=== PATIENT | male | born 1930 | race Caucasian/White ===

== ENCOUNTER 2016-07-02 10:15 | Emergency (ER) | payer MEDICARE, BC, OTHER ==
[~2016-07-02] VITALS: Ht 177.8 cm; Wt 83.9 kg
[2016-07-02] MEDS ORDERED: PANT40TA2 PO (10:27)
[2016-07-02] MEDS ORDERED: AMOX875T PO (10:27)
[2016-07-02] MEDS ORDERED: MAXZTA PO (10:27)
[2016-07-02] MEDS ORDERED: BENT10CA PO (10:27)
[2016-07-02] MEDS ORDERED: MECLIZINE 25 MG TABLET PO ONE (11:45)
[2016-07-02] MEDS ORDERED: PROMETHAZINE INJ 25 MG/ML VIAL (J2550) IV ONE (11:45)
[2016-07-02 11:58] LABS: BASO % 0.3 % (0.0-1.0); EOS # 0.2 K/mm3 (0.0-0.50); EOS % 2.7 % (0.0-3.0); LARGE UNSTAINED CELL # 0.1 K/mm3 (0.0-0.4); LARGE UNSTAINED CELL % 0.9 % (0.0-4.0); LYMPH % 13.3 % (24.0-44.0); MEAN CORPUSCULAR HEMOGLOBIN 31.4 pg (27.0-33.0); MEAN CORPUSCULAR HGB CONC 33.5 g/dl (32.0-36.5); MEAN CORPUSCULAR VOLUME 93.9 fl (80.0-96.0); MONO # 0.2 K/mm3 (0.0-0.8); MONO % 2.7 % (0.0-5.0); NEUTROPHILS # 5.6 K/mm3 (1.8-7.7); NEUTROPHILS % 80.1 % (36.0-66.0); PLATELET COUNT, AUTOMATED 101 k/mm3 (150-450)
--- NOTE | 2016-07-02 12:05 | REP ---
CT HEAD WITHOUT CONTRAST: HISTORY: Vertigo. Areas of decreased attenuation are present in the periventricular white matter. This represents small vessel ischemic disease. There is no intraparenchymal hemorrhage, mass or midline shift. The ventricular system and cortical sulci as well as subarachnoid space in the posterior fossa are dilated consistent with moderate volume loss. There is no extracerebral collection. The visualized sinuses are clear. IMPRESSION: 1. Small vessel ischemic disease. 2. Moderate volume loss. Signed by Leonel Becerra MD 07/02/2016 12:08 P
[2016-07-02 12:08] LABS: ANION GAP 3 MEQ/L (8-16); BLOOD UREA NITROGEN 27 MG/DL (7-18); CALCIUM LEVEL 9.1 MG/DL (8.8-10.2); CARBON DIOXIDE LEVEL 31 MEQ/L (21-32); CHLORIDE LEVEL 100 MEQ/L (98-107); CREATININE FOR GFR 0.99 MG/DL (0.70-1.30); GLOMERULAR FILTRATION RATE > 60.0 (>35); GLUCOSE, FASTING 133 MG/DL (83-110); POTASSIUM SERUM 3.6 MEQ/L (3.5-5.1); SODIUM LEVEL 134 MEQ/L (136-145)
[2016-07-02] MEDS ORDERED: MECL-68 PO (14:44)
[2016-07-02] MEDS ORDERED: ZOFR4TAB3 PO (14:44)
[2016-07-02 14:58] VITALS: BP 146/71
--- NOTE | 2016-07-03 04:56 | ECGEPIP ---
Stationary ECG Study [facility] - ED Test Date: 2016-07-02 Pat Name: ALEJANDRO WASHINGTON Department: Room: - Gender: M Director Of Claims: veronica : [id number] Requested By: Brad Pedro Order Number: [id number] Reading MD: Brad Hooker Measurements Intervals [place] Rate: 43 P: 36 NV: 172 QRS: -40 QRSD: 105 T: -3 QT: 477 QTc: 408 Interpretive Statements SINUS BRADYCARDIA LEFT AXIS DEVIATION PATTERN CONSISTENT WITH PULMONARY DISEASE NO PRIORS Electronically Signed On 07-03-2016 4:56:38 EDT by Brad Hooker
== END 2016-07-02 15:00 | disposition home or self-care (01) ==
LOC: M ED 13:34
DX: H83.09 Labyrinthitis, unspecified ear (principal); R00.1 Bradycardia, unspecified; K21.9 Gastro-esophageal reflux disease without esophagitis; Z79.899 Other long term (current) drug therapy; Z79.2 Long term (current) use of antibiotics

== ENCOUNTER → 2018-09-02 | Outpatient (REF) | payer MEDICARE, OTHER ==
[~2018-09-02] MED LIST: AMOX875T PO; BENT10CA PO; MAXZTA PO; MECL-68 PO; PANT40TA3 PO; TAMS1CAP17; ZOFR4TAB14 PO
[2018-09-03 14:47] LABS: PSA % FREE 23.4 % (.); PSA FREE 1.24 ng/mL; PSA TOTAL 5.3 ng/mL (0.0-4.0)
== END ==
LOC: M LAB REF 12:27
PROVIDERS: ATTEND Internal Medicine
DX: R97.20 Elevated prostate specific antigen [PSA] (principal); E29.1 Testicular hypofunction

== ENCOUNTER 2018-09-03 10:24 | Emergency (ER) | payer MEDICARE, BC, OTHER ==
[~2018-09-03] VITALS: Ht 175.3 cm; Wt 84.1 kg
[~2018-09-03 10:24] MED LIST changes: -TAMS1CAP17
[2018-09-03] MEDS ORDERED: TAMS1CAP17 (10:34)
[2018-09-03 11:06] LABS: BASO % 0.3 % (0.0-1.0); EOS # 0.2 10^3/uL (0.0-0.50); EOS % 2.4 % (0.0-3.0); HEMATOCRIT 44.7 % (42.0-52.0); LYMPH % 15.5 % (24.0-44.0); MEAN CORPUSCULAR HEMOGLOBIN 31.7 pg (27.0-33.0); MEAN CORPUSCULAR HGB CONC 33.6 g/dl (32.0-36.5); MEAN CORPUSCULAR VOLUME 94.5 fl (80.0-96.0); MONO # 0.3 10^3/uL (0.0-0.8); NEUTROPHILS # 4.8 10^3/uL (1.8-7.7); NEUTROPHILS % 76.6 % (36.0-66.0); PLATELET COUNT, AUTOMATED 127 10^3/uL (150-450); RED BLOOD COUNT 4.73 10^6/uL (4.30-6.10); WHITE BLOOD COUNT 6.2 10^3/uL (4.0-10.0)
[2018-09-03 11:28] LABS: ALBUMIN 3.9 GM/DL (3.2-5.2); ALT/SGPT 30 U/L (12-78); BILIRUBIN,DIRECT 0.2 MG/DL (0.0-0.2); BILIRUBIN,TOTAL 0.6 MG/DL (0.2-1.0); BLOOD UREA NITROGEN 27 MG/DL (7-18); CALCIUM LEVEL 9.2 MG/DL (8.8-10.2); CARBON DIOXIDE LEVEL 27 MEQ/L (21-32); CHLORIDE LEVEL 103 MEQ/L (98-107); CREATININE FOR GFR 1.14 MG/DL (0.70-1.30); GLOMERULAR FILTRATION RATE > 60.0 (>35); GLUCOSE, FASTING 105 MG/DL (70-100); LIPASE 125 U/L (73-393); POTASSIUM SERUM 3.5 MEQ/L (3.5-5.1); SODIUM LEVEL 138 MEQ/L (136-145); TOTAL PROTEIN 7.6 GM/DL (6.4-8.2)
--- NOTE | 2018-09-03 12:26 | REP ---
Bilateral inguinal ultrasound for hernia: The the patient has a palpable lump in the right inguinal area. Right inguinal ultrasound: The study is performed without and with Valsalva. Bowel , peritoneal fat and free fluid are identified in the right inguinal canal extending to the external ring but not to the scrotum. There is no change with Valsalva. Impression: Right inguinal hernia containing bowel. The left inguinal ultrasound: The the study is performed without and with Valsalva. There is no bowel within the left inguinal canal. However, peritoneal fat is identified within the inguinal canal. With Valsalva. The peritoneal fat extends to the external ring. Impression: Left inguinal hernia containing peritoneal fat but no bowel. Electronically Signed by Ck Cortez MD 09/03/2018 12:16 P
[2018-09-03] MEDS ORDERED: NS 1,000 ML IV ONE (13:00)
[2018-09-03] MEDS ORDERED: ISOVUE-370 76% 100ML VIAL (Q9967) As Ordered ONE (13:23)
[2018-09-03 16:38] VITALS: BP 154/79
--- NOTE | 2018-09-03 17:19 | REP ---
CT ABDOMEN AND PELVIS WITH IV CONTRAST: TECHNIQUE: Axial contrast enhanced images from the lung bases to the pubic symphysis using 100 mL Isovue 370 intravenous contrast material with multiplanar reformations. Visualized lung bases demonstrate mild fibrotic change. The liver demonstrates no mass. The gallbladder is grossly unremarkable. Spleen, adrenals, pancreas are grossly unremarkable. Kidneys demonstrate no hydronephrosis. There is atherosclerotic calcification of the abdominal aorta without aneurysm. There is no adenopathy. There is no free air or free fluid. No bowel wall thickening is seen. There is sigmoid diverticulosis. There is no evidence of appendicitis. Urinary bladder is mildly distended and grossly unremarkable. Small left inguinal hernia contains fat. There is a large right inguinal hernia containing nonobstructed small bowel loops. A tiny amount of fluid is seen in the hernia sac. I do not see significant edema in the hernia sac to suggest strangulation. There is some minor edema in the more superior right lower quadrant mesentery which is of doubtful significance. There are degenerative changes in the spine. IMPRESSION: Large right inguinal hernia contains nonobstructed small bowel. Minimal fluid in the hernia sac. No significant edema in the hernia sac and therefore I doubt that there is strangulation of the hernia. There is sigmoid diverticulosis without acute diverticulitis. No free air or free fluid. Electronically Signed by Ck Deleon MD 09/03/2018 06:44 P
== END 2018-09-03 16:43 | disposition home or self-care (01) ==
LOC: M ED 10:25
DX: K40.90 Unilateral inguinal hernia, without obstruction or gangrene, not specified as recurrent (principal); I10 Essential (primary) hypertension; Z79.899 Other long term (current) drug therapy
CPT/HCPCS: 74177; 76857; 80048; 80076; 83690; 85025; 96360; 96361; 99284; Q9967

== ENCOUNTER 2018-10-24 06:00 | Day surgery (SDC) | payer MEDICARE, BC, OTHER ==
[~2018-10-24] VITALS: Ht 174 cm; Wt 84.4 kg
[~2018-10-24 06:00] MED LIST changes: +ASPI81TA85 PO; +LIDOCAINE 1% MDV 20ML VIAL SQ PRN; +TAMS1CAP17 PO
[2018-10-24 06:44] LABS: HEMATOCRIT 40.7 % (42.0-52.0); HEMOGLOBIN 13.7 g/dl (13.5-17.5); MEAN CORPUSCULAR HGB CONC 33.7 g/dl (32.0-36.5); MEAN CORPUSCULAR VOLUME 92.1 fl (80.0-96.0); PLATELET COUNT, AUTOMATED 126 10^3/uL (150-450); RED BLOOD COUNT 4.42 10^6/uL (4.30-6.10); WHITE BLOOD COUNT 6.1 10^3/uL (4.0-10.0)
[2018-10-24] MEDS ORDERED: DESFLURANE 240 ML INHALANT As Ordered ONE (06:55)
[2018-10-24] MEDS ORDERED: LR 1,000 ML IV ONE (07:00)
[2018-10-24] MEDS ORDERED: ceFAZolin SOD 1 GM in D5W MINI-BAG PLUS 50 ML IV ONE (07:00)
[2018-10-24] MEDS ORDERED: LIDOCAINE 2% INJ 100 MG/5 ML SDV (FOR ANES.) As Ordered ONE (07:05)
[2018-10-24] MEDS ORDERED: ROCURONIUM BROMIDE 50 MG/5 ML VIAL As Ordered ONE ×2 (07:05→08:03)
[2018-10-24] MEDS ORDERED: ONDANSETRON 4MG/2ML VIAL (J2405) As Ordered ONE (07:05)
[2018-10-24] MEDS ORDERED: dexameTHASONE 4 MG/ML 1ML VIAL (J1100) As Ordered ONE (07:05)
[2018-10-24] MEDS ORDERED: PROPOFOL 200 MG/20 ML VIAL As Ordered ONE (07:05)
[2018-10-24] MEDS ORDERED: MIDAZOLAM INJ 2 MG/2 ML VIAL (J2250) As Ordered ONE (07:06)
[2018-10-24] MEDS ORDERED: fentaNYL 250 MCG/5 ML INJECTION (J3010) As Ordered ONE (07:06)
[2018-10-24] MEDS ORDERED: BUPIVACAINE/EPIN 0.25% 30 ML VIAL As Ordered ONE (07:08)
[2018-10-24] MEDS ORDERED: GLYCOPYRROLATE INJ 0.2 MG/ML 2 ML VIAL As Ordered ONE (07:40)
[2018-10-24] MEDS ORDERED: ePHEDrine SULFATE 25 MG/5 ML(5MG/ML) SYRINGE As Ordered ONE (08:25)
[2018-10-24] MEDS ORDERED: ACETAMINOPHEN 1000MG 100ML IV BTL (OFIRMEV) (J0131 PER 10MG) As Ordered ONE (08:25)
[2018-10-24] MEDS ORDERED: SUGAMMADEX SODIUM 500 MG/5 ML VIAL (BRIDION) As Ordered ONE (08:27)
[2018-10-24] MEDS ORDERED: NORCO, ANEXSIA 5/325MG TABLET (HYDROcodone/ACETAMINOPHEN) PO PRN (10:00)
[2018-10-24] MEDS ORDERED: ONDANSETRON 4MG/2ML VIAL (J2405) IV PRN ×2 (10:00)
[2018-10-24] MEDS ORDERED: fentaNYL 100 MCG/2 ML INJECTION (J3010) IV PRN (10:00)
[2018-10-24] MEDS ORDERED: LR 1,000 ML IV SCH ×2 (10:00)
[2018-10-24] MEDS ORDERED: PERCOCET 5MG/325MG TAB PO PRN (10:00)
[2018-10-24] MEDS ORDERED: HYDROMORPHONE HCL 0.5 MG/ 0.5 ML SYRINGE (J1170 PER 1) IV PRN (10:00)
[2018-10-24 12:15] VITALS: BP 126/80
== END 2018-10-24 12:31 | disposition home or self-care (01) ==
LOC: M SDC 06:00
PROVIDERS: ATTEND Surgery
DX: K40.20 Bilateral inguinal hernia, without obstruction or gangrene, not specified as recurrent (principal); I10 Essential (primary) hypertension; I87.2 Venous insufficiency (chronic) (peripheral); K57.92 Diverticulitis of intestine, part unspecified, without perforation or abscess without bleeding; N40.0 Benign prostatic hyperplasia without lower urinary tract symptoms; Z79.82 Long term (current) use of aspirin; Z79.899 Other long term (current) drug therapy
CPT/HCPCS: 36415; 49650; 85027; C1781; J0131; J0690; J1100; J2250; J2405; J3010

== ENCOUNTER → 2018-12-16 | Outpatient (REF) | payer MEDICARE, OTHER ==
[~2018-12-16] MED LIST changes: -LIDOCAINE 1% MDV 20ML VIAL SQ PRN
[2018-12-17 14:52] LABS: PSA % FREE 19.7 % (.); PSA FREE 1.2 ng/mL; PSA TOTAL 6.1 ng/mL (0.0-4.0)
== END ==
LOC: M LAB REF 12:32
PROVIDERS: ATTEND Internal Medicine
DX: R97.20 Elevated prostate specific antigen [PSA] (principal)

== ENCOUNTER → 2019-07-28 | Outpatient (REF) | payer MEDICARE, OTHER ==
[~2019-07-28] MED LIST changes: -MECL-68 PO; +MECL1TAB31 PO
== END ==
LOC: M LAB REF 13:36
PROVIDERS: ATTEND Nurse Practitioner Adult Health
DX: M10.9 Gout, unspecified (principal)

== ENCOUNTER → 2019-09-17 | Outpatient (REF) | payer MEDICARE, OTHER ==
[2019-09-19 02:07] LABS: PSA % FREE 18.5 % (.); PSA FREE 1.11 ng/mL
== END ==
LOC: M LAB REF 11:29
PROVIDERS: ATTEND Nurse Practitioner Adult Health
DX: R97.20 Elevated prostate specific antigen [PSA] (principal)

== ENCOUNTER → 2019-12-23 | Outpatient (REF) | payer MEDICARE, OTHER ==
[~2019-12-23] MED LIST changes: -ASPI81TA85 PO; +ASPI81TA86 PO; +PANT40TA29 PO; -PANT40TA3 PO
== END ==
LOC: M LAB REF 16:12
PROVIDERS: ATTEND Nurse Practitioner Adult Health
DX: M10.9 Gout, unspecified (principal)

== ENCOUNTER → 2020-07-21 | Outpatient (REF) | payer MEDICARE, OTHER | LOC: M LAB REF 16:21 | PROVIDERS: ATTEND Nurse Practitioner Adult Health | DX: M31.6 Other giant cell arteritis (principal) ==

== ENCOUNTER → 2020-08-18 | Outpatient (REF) | payer MEDICARE, OTHER | LOC: M LAB REF 12:24 | PROVIDERS: ATTEND Internal Medicine | DX: M31.6 Other giant cell arteritis (principal) ==

== ENCOUNTER → 2020-09-13 | Outpatient (REF) | payer MEDICARE, OTHER | LOC: M LAB REF 12:22 | PROVIDERS: ATTEND Internal Medicine | DX: M31.6 Other giant cell arteritis (principal); R70.0 Elevated erythrocyte sedimentation rate ==

== ENCOUNTER → 2020-10-13 | Outpatient (CLI) | payer MEDICARE, BC, OTHER ==
--- NOTE | 2020-10-13 12:14 | REP ---
INDICATION: MELISSA INGUINAL HERNIA. History of bilateral hernia repair, recent bulge on the left. Question recurrent hernia. COMPARISON: Comparison study is from September 03, 2018. TECHNIQUE: Bilateral inguinal sonography. FINDINGS: Bilateral inguinal canal sonography is performed. On the left there is evidence of recurrent inguinal hernia containing a bowel loop extending nearly to the external inguinal ring. The defect measures 0.7 cm in AP dimension. On the right scanning was performed at rest and with Valsalva. No evidence of right-sided hernia. No cyst or mass is seen on either side. IMPRESSION: Findings consistent with a recurrent hernia left inguinal canal containing bowel. This was not reducible with probe pressure.. <Electronically signed by Michael Escobedo > 10/13/20 [id number]
== END ==
LOC: M RAD 11:29
PROVIDERS: ATTEND Surgery
DX: K40.31 Unilateral inguinal hernia, with obstruction, without gangrene, recurrent (principal)

== ENCOUNTER → 2020-10-17 | Outpatient (REF) | payer MEDICARE, OTHER, BC ==
[~2020-10-17] MED LIST changes: -MAXZTA PO; +TRIA75TA2 PO
== END ==
LOC: M LAB REF 11:15
PROVIDERS: ATTEND Nurse Practitioner Adult Health
DX: M31.6 Other giant cell arteritis (principal)

== ENCOUNTER → 2020-11-17 | Outpatient (REF) | payer MEDICARE, OTHER, BC | LOC: M LAB REF 16:08 | PROVIDERS: ATTEND Nurse Practitioner Adult Health | DX: M31.6 Other giant cell arteritis (principal) ==

== ENCOUNTER → 2020-12-23 | Outpatient (REF) | payer MEDICARE, OTHER, BC | LOC: M LAB REF 12:39 | PROVIDERS: ATTEND Internal Medicine | DX: M31.6 Other giant cell arteritis (principal) ==

== ENCOUNTER → 2021-07-19 | Outpatient (REF) | payer MEDICARE, OTHER, BC | LOC: M LAB REF 12:33 | PROVIDERS: ATTEND Nurse Practitioner Adult Health | DX: M31.6 Other giant cell arteritis (principal) ==

== ENCOUNTER → 2021-08-17 | Outpatient (REF) | payer MEDICARE, OTHER, BC ==
[~2021-08-17] MED LIST changes: +TRIA75TA10 PO; -TRIA75TA2 PO
== END ==
LOC: M LAB REF 11:57
PROVIDERS: ATTEND Nurse Practitioner Adult Health
DX: I67.7 Cerebral arteritis, not elsewhere classified (principal); R70.0 Elevated erythrocyte sedimentation rate

== ENCOUNTER 2021-08-31 09:46 | Emergency (ER) | payer MEDICARE, OTHER, BC ==
[~2021-08-31] VITALS: Ht 177.8 cm; Wt 78.6 kg
[2021-08-31] MEDS ORDERED: FURO20TA2 (10:10)
[2021-08-31] MEDS ORDERED: DICY10CA13 (10:10)
[2021-08-31] MEDS ORDERED: ALLO300T2 (10:11)
[2021-08-31] MEDS ORDERED: VALS40TA9 (10:11)
[2021-08-31] MEDS ORDERED: POTA1TAB14 (10:11)
[2021-08-31] MEDS ORDERED: PRED5TA (10:14)
[2021-08-31 10:38] LABS: BASO % 0.1 % (0.0-1.0); EOS # 0.1 10^3/uL (0.0-0.5); EOS % 1.4 % (0.0-3.0); HEMOGLOBIN 13.1 g/dl (13.5-17.5); LYMPH # 2.1 10^3/uL (1.5-5.0); LYMPH % 29.4 % (24.0-44.0); MEAN CORPUSCULAR HEMOGLOBIN 30.8 pg (27.0-33.0); MEAN CORPUSCULAR VOLUME 96.5 fl (80.0-96.0); MONO # 0.6 10^3/uL (0.0-0.8); NEUTROPHILS # 4.2 10^3/uL (1.5-8.5); NEUTROPHILS % 59.7 % (36.0-66.0); PLATELET COUNT, AUTOMATED 100 10^3/uL (150-450); RED BLOOD COUNT 4.25 10^6/uL (4.30-6.10); WHITE BLOOD COUNT 7.1 10^3/uL (4.0-10.0)
[2021-08-31 10:57] LABS: BLOOD UREA NITROGEN 26 MG/DL (7-18); CALCIUM LEVEL 9.2 MG/DL (8.8-10.2); CARBON DIOXIDE LEVEL 28 MEQ/L (21-32); CHLORIDE LEVEL 109 MEQ/L (98-107); CREATININE FOR GFR 1.04 MG/DL (0.70-1.30); GLOMERULAR FILTRATION RATE > 60.0 (>35); GLUCOSE, FASTING 90 MG/DL (70-100); POTASSIUM SERUM 3.6 MEQ/L (3.5-5.1); SODIUM LEVEL 143 MEQ/L (136-145)
[2021-08-31 11:01] LABS: CK-MB VALUE MASS 3.1 NG/ML (<3.6); MB/CK RELATIVE INDEX 2.31 (< OR =4)
[2021-08-31] MEDS ORDERED: ASPIRIN 81 MG CHEW TABLET PO ONE (12:10)
[2021-08-31] MEDS ORDERED: ISOSORBIDE MON. (IMDUR) 30MG XR TAB PO ONE (12:20)
[2021-08-31] MEDS ORDERED: APIXABAN 5 MG TAB (ELIQUIS) PO ONE (12:20)
[2021-08-31 12:35] VITALS: BP 145/72
[2021-08-31 12:45] LABS: CHOLESTEROL LEVEL 177 MG/DL (<200); CHOLESTEROL RISK RATIO 2.107 (<5); HDL CHOLESTEROL 84 MG/DL (>40); LDL CHOLESTEROL 74 MG/DL (<100); NON-HDL-C 93 MG/DL; NT-PRO BNP 285 PG/ML (<450); TRIGLYCERIDES LEVEL 95 MG/DL (<150)
[2021-08-31] MEDS ORDERED: ISOS1TAB35 PO (13:50)
[2021-08-31] MEDS ORDERED: ELIQ5TAB PO (13:50)
[2021-08-31 14:00] VITALS: BP 120/70
== END 2021-08-31 14:21 | disposition home or self-care (01) ==
LOC: M ED 09:46
DX: I20.8 Other forms of angina pectoris (principal); I10 Essential (primary) hypertension; I48.91 Unspecified atrial fibrillation; Z79.899 Other long term (current) drug therapy; Z79.82 Long term (current) use of aspirin; Z79.52 Long term (current) use of systemic steroids

== ENCOUNTER → 2021-09-04 | Outpatient (CLI) | payer MEDICARE, BC, OTHER ==
[~2021-09-04] MED LIST changes: +ALLO300T2; +DICY10CA13; +ELIQ5TAB PO; +FURO20TA2; +ISOS1TAB35 PO; +POTA1TAB14; +PRED5TA; +VALS40TA9
== END ==
LOC: M LABSMTC 11:26
PROVIDERS: ATTEND Internal Medicine Cardiovascular Disease
DX: Z11.52 Encounter for screening for COVID-19 (principal)

== ENCOUNTER → 2021-09-20 | Outpatient (REF) | payer MEDICARE, BC, OTHER | LOC: M LAB REF 16:42 | PROVIDERS: ATTEND Internal Medicine | DX: R70.0 Elevated erythrocyte sedimentation rate (principal); H53.452 Other localized visual field defect, left eye ==

== ENCOUNTER → 2021-10-24 | Outpatient (REF) | payer MEDICARE, BC | LOC: M LAB REF 16:19 | PROVIDERS: ATTEND Nurse Practitioner Adult Health | DX: R70.0 Elevated erythrocyte sedimentation rate (principal) ==

== ENCOUNTER → 2021-11-22 | Outpatient (REF) | payer MEDICARE, OTHER | LOC: M LAB REF 15:05 | PROVIDERS: ATTEND Nurse Practitioner Adult Health | DX: R70.0 Elevated erythrocyte sedimentation rate (principal); I67.7 Cerebral arteritis, not elsewhere classified ==

== ENCOUNTER → 2021-12-07 | Outpatient (CLI) | payer MEDICARE, BC, OTHER | LOC: M CARPUL 11:04 | PROVIDERS: ATTEND Physician Assistant | DX: R06.00 Dyspnea, unspecified (principal) ==

== ENCOUNTER → 2022-01-01 | Outpatient (REF) | payer MEDICARE, OTHER, BC | LOC: M LAB REF 11:32 | PROVIDERS: ATTEND Nurse Practitioner Adult Health | DX: R70.0 Elevated erythrocyte sedimentation rate (principal); M31.6 Other giant cell arteritis ==

== ENCOUNTER → 2022-01-18 | Outpatient (REF) | payer MEDICARE, OTHER | LOC: M LAB REF 11:54 | PROVIDERS: ATTEND Nurse Practitioner Adult Health | DX: M31.6 Other giant cell arteritis (principal) ==

== ENCOUNTER → 2022-02-26 | Outpatient (REF) | payer MEDICARE, OTHER | LOC: M LAB REF 16:04 | PROVIDERS: ATTEND Internal Medicine | DX: M31.6 Other giant cell arteritis (principal) ==

== ENCOUNTER → 2022-03-27 | Outpatient (REF) | payer MEDICARE, OTHER | LOC: M LAB REF 12:42 | PROVIDERS: ATTEND Nurse Practitioner Adult Health | DX: M31.6 Other giant cell arteritis (principal) ==

== ENCOUNTER → 2022-07-14 | Outpatient (REF) | payer MEDICARE, OTHER ==
[2022-07-14 17:54] LABS: APPEARANCE, URINE CLEAR (CLEAR); BACTERIA, URINE AUTO NEGATIVE (NEGATIVE); BILIRUBIN, URINE AUTO NEGATIVE (NEGATIVE); BLOOD, URINE BLOOD NEGATIVE (NEGATIVE); COLOR, URINE YELLOW (YELLOW); GLUCOSE, URINE (UA) AUTO NEGATIVE (NEGATIVE); KETONE, URINE AUTO NEGATIVE (NEGATIVE); LEUKOCYTE ESTERASE, URINE AUTO NEGATIVE (NEGATIVE); NITRITE, URINE AUTO NEGATIVE (NEGATIVE); PROTEIN, URINE AUTO NEGATIVE (NEGATIVE); RBC, URINE AUTO 0 /HPF (0-3); SQUAMOUS EPITHELIAL CELL UR AU 0 /HPF (0-6); UROBILINOGEN, URINE AUTO 0.2 mg/dL (0.0-2.0); WBC, URINE AUTO 0 /HPF (0-3)
== END ==
LOC: M LAB REF 17:25
PROVIDERS: ATTEND Physician Assistant Medical
DX: N39.0 Urinary tract infection, site not specified (principal)

== ENCOUNTER → 2022-07-17 | Outpatient (CLI) | payer MEDICARE, OTHER ==
[~2022-07-17] MED LIST changes: +POTA-298; -POTA1TAB14
== END ==
LOC: M WUC 11:24
PROVIDERS: ATTEND Internal Medicine
DX: R06.02 Shortness of breath (principal)

== ENCOUNTER → 2022-09-21 | Outpatient (REF) | payer MEDICARE, OTHER | LOC: M LAB REF 12:36 | PROVIDERS: ATTEND Internal Medicine | DX: M31.6 Other giant cell arteritis (principal) ==